=== PATIENT | male | born 1985 | race Asian ===

== ENCOUNTER 2018-06-06 20:27 | Emergency (ER) | payer OTHER ==
[~2018-06-06] VITALS: Ht 180.3 cm; Wt 79.4 kg
[2018-06-06 20:34] VITALS: BP_SYST 121
[2018-06-06 22:24] VITALS: BP_SYST 121
== END 2018-06-06 22:24 | disposition home or self-care (01) ==
LOC: SED 20:27
DX: J32.9 Chronic sinusitis, unspecified (principal); Z91.048 Other nonmedicinal substance allergy status
CPT/HCPCS: 99283

== ENCOUNTER 2020-12-16 18:46 | Emergency (ER) | payer OTHER ==
[~2020-12-16] VITALS: Ht 180.3 cm; Wt 74.8 kg
--- NOTE | 2020-12-16 19:23 | NUR ---
Patient to ER bed 6 to gown for evaluation. Side rails up. Report given to KEHINDE JAIMES.
[2020-12-16 19:24] VITALS: BP_SYST 141
--- NOTE | 2020-12-16 19:29 | NUR ---
PATIENT AAOX4 AND AMBULATORY FROM HOME C/O SOB AND CHEST PAIN RATING 6/10 ON THE PAIN SCALE. VSS. PT HAD COVID EARLIER THIS YEAR. EVER SINCE PT HAS BEEN HAVING INTERMITTENT CHEST PAIN AND SOB EVER SINCE. 99% ROOM AIR. DENIES N/V/D. CAP REFILL <3SECONDS.
--- NOTE | 2020-12-16 19:44 | NUR ---
PORTABLE XRAY DONE AT BEDSIDE.
--- NOTE | 2020-12-16 19:50 | NUR ---
AT BEDSIDE FOR EVALUATION.
--- NOTE | 2020-12-16 20:13 | NUR ---
# 20 gauge angiocath placed to LEFT AC. Use of asceptic technique. Opsite placed over site. Blood return noted. Blood for lab drawn from site. Flushed with 10 cc of normal saline. No evidence of infiltration noted. Patient tolerated well.
--- NOTE | 2020-12-16 20:15 | NUR ---
PT TAKEN TO CTA SCAN VIA WHEELCHAIR.
[2020-12-16] MEDS ORDERED: IOHEXOL 350 mgI/mL, 150 ML INFUS..BTL IV ONE (20:19)
[2020-12-16 20:23] LABS: BASOPHILS % (AUTO) 0.6 % (0.0-2.0); EOSINOPHILS # (AUTO) 0.1 K/uL (0.0-0.4); EOSINOPHILS % (AUTO) 0.9 % (0.0-4.0); HEMATOCRIT 43.7 % (36-54); HEMOGLOBIN 14.9 g/dL (14.0-18.0); LYMPHOCYTES # (AUTO) 0.9 K/uL (1.0-5.5); LYMPHOCYTES % (AUTO) 11.2 % (20.5-51.5); MEAN CORPUSCULAR HEMOGLOBIN 29 pg (27-31); MEAN CORPUSCULAR HGB CONC 34 % (32-36); MEAN CORPUSCULAR VOLUME 86 fL (79.0-98.0); MONOCYTES # (AUTO) 0.6 K/uL (0.0-1.0); MONOCYTES % (AUTO) 7.3 % (1.7-9.3); NEUTROPHILS # (AUTO) 6.5 K/uL (1.8-7.7); PLATELET COUNT (AUTO) 214 K/uL (130-430); RED BLOOD CELL COUNT(AUTO) 5.09 MIL/uL (4.2-6.2); RED CELL DISTRIBUTION WIDTH 13.5 % (9.0-15.0); WHITE BLOOD COUNT (AUTO) 8.2 K/uL (4.8-10.8)
--- NOTE | 2020-12-16 20:30 | NUR ---
PT BACK FROM CT SCAN VIA WHEELCHAIR AND RECONNECTED TO MONITOR.
[2020-12-16 20:34] LABS: ANION GAP 10 (5-15); CALCIUM 9.3 mg/dL (8.4-11.0); CHLORIDE 101 mmol/L (98-107); CREATININE 0.94 mg/dL (0.55-1.30); GLUCOSE 100 mg/dL (70-99); POTASSIUM 3.6 mmol/L (3.5-5.1); SODIUM SERUM 137 mmol/L (136-145); UREA NITROGEN, BLOOD 15 mg/dL (8-21)
[2020-12-16 20:35] LABS: GFR AFRICAN AMERICAN 119 mL/min (>90)
[2020-12-16 20:43] LABS: ALANINE AMINOTRANSFERASE 43 U/L (12-78); ALBUMIN 4.5 g/dL (3.4-4.8); ASPARTATE AMINOTRANSFERASE 18 U/L (10-37); TOTAL BILIRUBIN 0.7 mg/dL (0.0-1.0)
--- NOTE | 2020-12-16 21:17 | NUR ---
Patient resting quietly. No acute distress noted. Vital signs within normal range. AWAITING FOR CT RESULTS. GIRLFRIEND AT BEDSIDE.
[2020-12-16 21:48] VITALS: BP_SYST 141
--- NOTE | 2020-12-16 21:48 | NUR ---
Patient given written and verbal discharge instructions and verbalizes understanding. DR. RACH BOLDEN MD discussed with patient the results and treatment provided. Patient in stable condition. ID arm band removed. IV catheter removed intact and dressing applied, no active bleeding. Patient educated on pain management and to follow up with PMD. Pain Scale 0/10 Opportunity for questions provided and answered. Medication side effect fact sheet provided.
== END 2020-12-16 21:48 | disposition home or self-care (01) ==
LOC: SED 18:46
DX: R06.02 Shortness of breath (principal); Z20.822 Contact with and (suspected) exposure to COVID-19; Z88.8 Allergy status to other drugs, medicaments and biological substances
CPT/HCPCS: 36415; 71045; 71275; 76376; 80053; 83880; 84484; 85025; 93005; 99285; Q9967